=== PATIENT | female | born 1990 | race Caucasian/White ===

== ENCOUNTER 2017-01-12 11:19 | Inpatient (IN) | payer OTHER ==
[~2017-01-12] VITALS: Ht 175.3 cm; Wt 107.8 kg
[2017-01-12 12:07] LABS: PLATELET COUNT 292 x10^3mcL (130-400); RED CELL DISTRIBUTION WIDTH 13.9 % (11.5-14.5)
[2017-01-12 12:09] LABS: UA SPECIFIC GRAVITY 1.015 (1.005-1.035); microscopic required? YES; urine erythrocyte 1+ (NEGATIVE)
[2017-01-12 12:16] LABS: CALCIUM 9.1 mg/dL (8.5-10.1); CARBON DIOXIDE 26.5 mmol/L (21-32); CHLORIDE SERUM 99 mmol/L (98-107); GFR1 > 60 mL/min; GLUCOSE SERUM 97 mg/dL (74-106); POTASSIUM SERUM 3.4 mmol/L (3.5-5.1); SODIUM SERUM 135 mmol/L (136-145)
[2017-01-12 12:17] LABS: ALBUMIN 3.7 g/dL (3.4-5.0); ALKALINE PHOSPHATASE 91 U/L (46-116); ALT/SGPT 23 U/L (14-59); AST/SGOT 15 U/L (15-37); BILIRUBIN TOTAL 0.4 mg/dL (0.20-1.00); TOTAL PROTEIN, SERUM 8.2 g/dL (6.4-8.2)
[2017-01-12 12:36] LABS: BAND NEUTROPHIL 9 % (0-10); BASOPHIL 0 % (0-2); MONOCYTE 4 % (0-7); PLATELET MORPHOLOGY LARGE PLATELET SEEN; SEGMENTED NEUTROPHILS 80 % (37-75); rbc morphology (normal/abnorm) NORMAL (NORMAL)
[2017-01-12 14:25] VITALS: BP 138/73
[2017-01-12 14:56] VITALS: BP 138/73
[2017-01-12 17:04] LABS: T3 TOTAL 0.98 ng/mL
[2017-01-12 17:15] VITALS: BP 140/76
[2017-01-12 17:30] LABS: FREE T4 1.17 ng/dL (0.76-1.46); FREE THYROXINE INDEX 3.2 ug/dL (1.4-4.5); T4(THYROXINE) 11.3 ug/dL (4.7-13.3)
[2017-01-12 17:54] LABS: MAGNESIUM 1.5 mg/dL (1.8-2.4); PHOSPHOROUS 2.4 mg/dL (2.5-4.9)
[2017-01-12 18:07] LABS: CHOLESTEROL/HDL RATIO 2.7
[2017-01-12 18:10] VITALS: BP 138/73
[2017-01-12 19:42] LABS: AMPHETAMINE QUAL UR NONE DETECTED (NEG <=1000)
[2017-01-12 21:43] VITALS: BP 142/69
[2017-01-13 05:50] VITALS: BP 119/46
[2017-01-13 06:43] LABS: CALCIUM 8.7 mg/dL (8.5-10.1); CARBON DIOXIDE 27.1 mmol/L (21-32); CHLORIDE SERUM 104 mmol/L (98-107); CREATININE SERUM 0.9 mg/dL (0.6-1.0); GFR1 > 60 mL/min; GLUCOSE SERUM 98 mg/dL (74-106); MAGNESIUM 2.4 mg/dL (1.8-2.4); PHOSPHOROUS 2.6 mg/dL (2.5-4.9); SODIUM SERUM 137 mmol/L (136-145)
[2017-01-13 06:45] LABS: PLATELET COUNT 240 x10^3mcL (130-400); RED CELL DISTRIBUTION WIDTH 13.8 % (11.5-14.5)
[2017-01-13 09:23] VITALS: BP 111/59
[2017-01-13 12:26] LABS: BAND NEUTROPHIL 4 % (0-10); MONOCYTE 3 % (0-7); PLATELET MORPHOLOGY PLATELETS NORMAL; SEGMENTED NEUTROPHILS 89 % (37-75); rbc morphology (normal/abnorm) ABNORMAL (NORMAL)
[2017-01-13 17:43] VITALS: BP 117/52
[2017-01-13 20:54] VITALS: BP 125/79
[2017-01-14 05:48] VITALS: BP 123/70
[2017-01-14 06:07] LABS: PLATELET COUNT 255 x10^3mcL (130-400); RED CELL DISTRIBUTION WIDTH 14.2 % (11.5-14.5)
[2017-01-14 06:50] LABS: CALCIUM 8.8 mg/dL (8.5-10.1); CARBON DIOXIDE 28.4 mmol/L (21-32); CHLORIDE SERUM 105 mmol/L (98-107); CREATININE SERUM 0.9 mg/dL (0.6-1.0); GFR1 > 60 mL/min; GLUCOSE SERUM 90 mg/dL (74-106); MAGNESIUM 2.2 mg/dL (1.8-2.4); PHOSPHOROUS 3.6 mg/dL (2.5-4.9); POTASSIUM SERUM 4.2 mmol/L (3.5-5.1); SODIUM SERUM 140 mmol/L (136-145)
[2017-01-14 07:57] LABS: BAND NEUTROPHIL 4 % (0-10); MONOCYTE 6 % (0-7); SEGMENTED NEUTROPHILS 73 % (37-75)
[2017-01-14 07:58] LABS: rbc morphology (normal/abnorm) NORMAL (NORMAL)
[2017-01-14] MEDS ORDERED: ZITHROMAX TRI-500 MG PO (08:15)
[2017-01-14] MEDS ORDERED: TOR10 PO (08:16)
[2017-01-14] MEDS ORDERED: LAC PO (08:37)
[2017-01-14] MEDS ORDERED: COUGH100 MG/5 M PO (08:37)
[2017-01-14] MEDS ORDERED: CEPACOL SORE TH1 LO4 MM (08:37)
[2017-01-14 09:25] VITALS: BP 130/80
[2017-01-14 11:24] VITALS: BP 130/80
[2017-01-14 12:23] LABS: RAPID PLASMA REAGIN Non Reactive (Non Reactive)
== END 2017-01-14 11:40 | disposition home or self-care (01) | DRG 139 ==
LOC: ED 11:19 → MU 13:24 → DU 13:24 → MU 01-13 06:53
PROVIDERS: Emergency Medicine; ADMIT Family Medicine
DX: J18.9 Pneumonia, unspecified organism (principal); R65.10 Systemic inflammatory response syndrome (SIRS) of non-infectious origin without acute organ dysfunction; E87.1 Hypo-osmolality and hyponatremia; E83.42 Hypomagnesemia; E83.39 Other disorders of phosphorus metabolism; E87.6 Hypokalemia; E78.5 Hyperlipidemia, unspecified; I10 Essential (primary) hypertension; N88.8 Other specified noninflammatory disorders of cervix uteri; F12.10 Cannabis abuse, uncomplicated; B37.3 Candidiasis of vulva and vagina; M62.830 Muscle spasm of back; E66.9 Obesity, unspecified; Z83.3 Family history of diabetes mellitus; Z82.49 Family history of ischemic heart disease and other diseases of the circulatory system; Z82.3 Family history of stroke; Z80.9 Family history of malignant neoplasm, unspecified; Z68.35 Body mass index [BMI] 35.0-35.9, adult
CPT/HCPCS: 83880; 84439; 87491; 87591; 94150; C9113; J0694; J0696; J1885; J1956; J2270; J3010; J3475; J3490; J7030; J7620; Q0092